=== PATIENT | male | born 1960 | race Caucasian/White ===

== ENCOUNTER 2023-12-12 21:04 | Emergency (ER) | payer OTHER, SELFPAY ==
[2023-12-12 21:10] VITALS: BMI 21.0
[2023-12-12 21:13] VITALS: BP 161/110
[2023-12-12 21:18] VITALS: BP 161/82
[2023-12-12 22:00] VITALS: BP 158/94
[2023-12-12 23:00] VITALS: BP 192/85
--- NOTE | 2023-12-12 23:54 | ED.GENMED ---
History of Present Illness
General
Chief Complaint: Change in Mental Status
Source: patient
Exam Limitations: none
Time Seen by Provider: 12/12/23 23:49
History of Present Illness
History of Present Illness:
See MDM
Past History
Past History
ED Past Medical History: None
ED Past Surgical History: Bowel resection
Social History
Drug: Other (Meth)
Living: skilled nursing
Phy Exam
Physical Exam
Physical Exam:
See MDM
Course
Orders/Labs/Results
Orders:
Orders
12/12/23 21:12
EKG [Electrocardiogram (*1)] Urgent
Reason for Study: Other
Other Reason for Exam: change in mental status
EKG- Treatment ONCE
12/12/23 23:53
Complete Blood Count/With Diff Urgent
Comprehensive Metabolic Panel Urgent
Lorazepam [Ativan] 1 mg IV NOW STA
12/13/23 00:02
CT Head W/o Iv Contrast Urgent
Reason For Exam: altered
12/13/23 01:22
Lorazepam [Ativan] 2 mg .ROUTE .STK-MED ONE
12/13/23 01:25
Lorazepam [Ativan] 1 mg IV NOW STA
12/13/23 02:09
Asenapine Sublingual [Saphris] 10 mg SL NOW STA
Abnormal Lab Results
12/13/23
00:56
RDW 14.9 H %
(11.5-14.5)
BUN 25 H mg/dl
(9-20)
12/13/23 00:56
12/13/23 00:56
Vital Signs
Initial and Last Documented VS:
Initial Vital Signs
Pulse Resp
74 21
12/12/23 21:09 12/12/23 21:09
Last Documented Vital Signs
Pulse Resp BP Pulse Ox
58 14 165/95 96
12/13/23 01:30 12/13/23 01:30 12/13/23 01:17 12/13/23 01:32
MDM/Problems Addressed
Differential Diagnosis Includes:
HPI and MDM Narrative:
63-year-old male presenting for evaluation of abnormal behavior. Patient presents from [facility]. Per the facility, patient has been twitching and appears confused. On arrival, patient is intermittently twitching and
appears to be either intoxicated or withdrawing. He does acknowledge that he took meth 2 days ago. Goes on to tangential speech but is easily redirected and answering most questions appropriately
Will give a dose of Ativan for his agitation. Will obtain CT head and basic lab work to rule out metabolic encephalopathy
Physical exam
General: Well appearing and non-toxic. Lying in bed comfortably
HEENT: protecting airway
Neck: appears supple
CV: No evidence of cyanosis. Regular rate and rhythm
Resp: No accessory muscle use
Abd: Non-distended
Extremities: No deformities. Intermittently twitching both hands and legs without evidence of seizure
Neuro: alert. No focal deficits. Answering questions appropriately
Psych: Normal affect
Skin: Intact
Problems Addressed including Acute and Chronic Conditions affecting care:
1. Abnormal behavior
Acuity: acute
Prognosis: stable
Details: Likely in the setting of drug intoxication given his history. Patient does acknowledge recent meth use. Will look for alternative source of agitation in regards to CT head and basic blood work. Will give dose of Ativan
Updates
Labs within normal limits. CT head negative. Patient medically cleared for incarceration
Differential Diagnosis (but not limited to): Methamphetamine intoxication, drug withdrawal, hyponatremia
Testing considered: UDS but patient admits to recent drug
Drug therapy (if applicable): OTC meds, please see d/c instruction regarding Rx drugs
Amount and/or Complexity of Data Reviewed
Clinical info obtained from: Patient
External data reviewed: N/A
Labs I independently reviewed (but not limited to): Sodium levels normal, no leukocytosis
Radiology: The CT scan was personally and independently reviewed. In addition, official CT report reviewed.
Pulse Ox: not hypoxic
EKG independently reviewed: N/A
Client Portfolio Manager: N/A
Critical Care: N/A
Risk of Complication:
Social Determinants of health: Poor social support
Discussed with other providers: N/A
Escalation of Care includes Admit/Obs: After being observed in the Emergency Department, pt stable for discharge Back to skilled nursing
Occasional wrong word or 'sound a like' substitutions may have occurred due to the inherent limitations of voice recognition software. Read the chart carefully and recognize, using context, where substitutions have occurred.
*Critical Care Note
Total Time (30-74mins, 75-104mins- exclusive of procedures): Not Applicable
ED Attending Note
-
Portions of this chart may have been created with voice recognition software.� Occasional wrong word or��sound alike� substitutions may have occurred due to the inherent limitations of voice recognition software.
Discharge Plan
Departure
Patient Disposition: Intermediate
Date of Disposition: 12/13/23
Time of Disposition: 02:35
Patient with high blood pressure during this ER visit?: Yes
Discharge Problem:
Abnormal behavior
Instructions: BLOOD PRESSURE
Prescriptions:
No Action
Unobtainable
0
Referrals:
[facility] [Family Provider] -
Activity Restrictions/Additional Instructions:
Binh Crouch is medically stable and cleared for incarceration
Interventions
Interventions:
*Risk Screen - Suicide Last Done: 12/12/23 21:13
*General Assessment Last Done: 12/12/23 21:13
*Neglect/Abuse Screening Last Done: 12/12/23 21:13
ED- Fall Risk Assessment Last Done: 12/12/23 21:13
*ED COVID-19 Vaccine History Last Done: 12/12/23 21:13
ED- Pulmonary Assessment Last Done: 12/12/23 21:13
ED- Neurological Assessment Last Done: 12/12/23 21:13
ED- Cardiac Assessment Last Done: 12/12/23 21:13
ED Swallowing Screen Last Done: 12/12/23 21:13
Discharge Date and Time
Print Language: DANISH
[2023-12-13] VITALS (7 sets, daily range): BP systolic 157–201; BP diastolic 86–99
[2023-12-13] MEDS: ATIVAN 1 MG IV ×2 (00:55→01:27)
[2023-12-13 01:02] LABS: % Eosinophils 4.5 % (0-6); % Immature Granulocytes 0.1 % (0-0.5); % Lymphocytes 35.4 % (20.5-51.1); % Monocytes 8.5 % (1.7-9.3); % Neutrophils 50.5 % (42.2-75.2); Absolute Basophils 0.1 10^3/uL (0-0.2); Absolute Eosinophils 0.3 10^3/uL (0-0.7); Absolute Lymphocytes 2.4 10^3/uL (1.2-3.4); Absolute Monocytes 0.6 10^3/uL (0.1-0.6); Absolute Neutrophils 3.5 10^3/uL (1.4-6.5); Hematocrit 43.1 % (39.0-52.0); Hemoglobin 14.8 g/dL (13.0-18.0); Mean Corp Hgb Conc. 34.3 g/dL (33.0-37.0); Mean Corpuscular Volume 81.6 fL (80.0-94.0); Mean Platelet Volume 9.3 fL (7.4-10.4); Nucleated Red Blood Cells % 0 % (-); Platelet Count 224 10^3/uL (130-400); Red Blood Cell Count 5.28 10^6/uL (4.70-6.10); Red Cell Dist. Width 14.9 % (11.5-14.5); White Blood Cell Count 6.9 10^3/uL (4.8-10.8)
[2023-12-13 01:17] LABS: ALT (SGPT) 38 U/L (0-50); AST (SGOT) 59 U/L (17-59); Albumin 4.4 g/dl (3.5-5.0); Alkaline Phosphatase 100 U/L (38-126); Blood Urea Nitrogen 25 mg/dl (9-20); Calcium 9.9 mg/dl (8.4-10.2); Carbon Dioxide 25 mmol/L (22-30); Chloride 107 mmol/L (98-107); Estimated Creatinine Clearance 79 ml/min; Glucose 92 mg/dl (70-99); Potassium 4.6 mmol/L (3.5-5.1); Sodium 145 mmol/L (135-145); Total Bilirubin 0.9 mg/dl (0.2-1.3); Total Protein 7.5 g/dl (6.3-8.2); eGFR > 60.00
[2023-12-13] MEDS: SAPHRIS 10 MG SL (02:12)
== END 2023-12-13 03:15 ==
LOC: EMR 21:04
PROVIDERS: EMERGENCY PHYSICIAN Student in an Organized Health Care Education/Training Program
DX: R41.82 Altered mental status, unspecified (principal); R46.89 Other symptoms and signs involving appearance and behavior
CPT/HCPCS: 99284; 96374; 96376; 70450; 80053; 85025; 93005